=== PATIENT | male | born 1975 | race Caucasian/White ===

== ENCOUNTER 2023-08-03 08:48 | Outpatient (CLI) | payer BC, SELFPAY ==
--- NOTE | ~2023-08-03 | XR_ITS ---
EXAMINATION: XR ankle LT 2V DATE: 08/03/2023 09:02 INDICATION: Left ankle injury and pain. TECHNIQUE: 2 views of left ankle were obtained. COMPARISON: None. FINDINGS: Bone alignment is normal. No fracture. Joint spaces are normal. There is an enthesophyte at medial malleolus. There is an enthesophyte at posterior aspect of calcaneal tuberosity. There is ank le soft tissue swelling. IMPRESSION: 1. No fracture. Reviewed, dictated and finalized at location A. IMPRESSION: 1. No fracture.
== END 2023-08-03 08:49 | disposition home or self-care (01) ==
PROVIDERS: PCP Family Medicine; Visit Provider Physician Assistant Medical
DX: M25.572 Pain in left ankle and joints of left foot (principal)
CPT/HCPCS: 73600

== ENCOUNTER 2023-08-25 08:10 | Outpatient (CLI) | payer BC, SELFPAY ==
--- NOTE | ~2023-08-25 | NM_ITS ---
EXAMINATION: NM stress w perf spect multi DATE: 08/25/2023 12:12 INDICATION: Chest pain and hypertension TECHNIQUE: Rest images were obtained following intravenous administration of 9.7 mCi Tc99m tetrofosmi n (Gyros). The patient performed an exercise activity. At peak exercise, 31.5 mCi Tc99m tetrofosmin ([employer]) was administered intravenously, and stress images were obtained. Data was reconstructed in to short axis and horizontal and vertical long axis SPECT images. Gated SPECT images were also obtain ed. COMPARISON: None. FINDINGS: There is normal left ventricular perfusion without definite evidence of reversible or fixed perfusion abnormality to suggest ischemia or infarction. There is normal left ventricular chamber size, wall motion and ejection fraction. Left ventricular ejection fraction measures >70%. IMPRESSION: 1. Normal myocardial perfusion at rest and during stress. 2. Left ventricular ejection fraction measuring >70%. Reviewed, dictated and finalized at location A.
--- NOTE | 2023-08-25 08:28 | EST_ITS ---
Patient Info Name: Ross Castillo Age: 48 years : 1975 Gender: Male Ht: 72 in Wt: 275 lbs BSA: 2.56 m2 HR: 65 bpm BP: 120 / 84 mmHg Exam Date: 08/25/2023 9:17 AM Exam Location: [facility] Patient Status: Outpatient Admit Date: 08/25/2023 Staff Ordering Physician: Reyna Myers Attending Provider: Reyna Myers Exercise Technologist: Nimco Kuhn RDCS Exercise Physician: Vinnie Nieves DO Exam Type: CA stress test treadmill w NM Study Info A nuclear stress test was performed. Summary 1. 1. Negative Keny exercise stress test for ischemic ST changes by ECG criteria. 2. 2. Good functional capacity, achieving 10 METs of workload. 3. 3. Appropriate HR response to exercise. 4. 4. Appropriate HR recovery at 1 minute post exercise. 5. 5. Nuclear scan to follow and will be reported separately. Please correlate with it. 6. 6. Patient informed of the above results. Protocol: Keny Stress ECG Details Stage: REST Duration (min): 1 min : 8 sec Speed (mph): 0.0 Grade (%): 0 HR (bpm): 69 SBP (mmHg): 120 DBP (mmHg): 84 METS: --- Stage: STAGE 1 Duration (min): 1 min : 0 sec Speed (mph): 1.7 Grade (%): 10 HR (bpm): 111 SBP (mmHg): 120 DBP (mmHg): 84 METS: --- Stage: STAGE 1 Duration (min): 2 min : 0 sec Speed (mph): 1.7 Grade (%): 10 HR (bpm): 113 SBP (mmHg): 120 DBP (mmHg): 84 METS: --- Stage: STAGE 1 Duration (min): 3 min : 0 sec Speed (mph): 1.7 Grade (%): 10 HR (bpm): 118 SBP (mmHg): 147 DBP (mmHg): 64 METS: --- Stage: STAGE 2 Duration (min): 1 min : 0 sec Speed (mph): 2.5 Grade (%): 12 HR (bpm): 128 SBP (mmHg): 147 DBP (mmHg): 64 METS: --- Stage: STAGE 2 Duration (min): 2 min : 0 sec Speed (mph): 2.5 Grade (%): 12 HR (bpm): 135 SBP (mmHg): 158 DBP (mmHg): 72 METS: --- Stage: STAGE 2 Duration (min): 3 min : 0 sec Speed (mph): 2.5 Grade (%): 12 HR (bpm): 136 SBP (mmHg): 158 DBP (mmHg): 72 METS: --- Stage: STAGE 3 Duration (min): 1 min : 0 sec Speed (mph): 3.4 Grade (%): 14 HR (bpm): 138 SBP (mmHg): 187 DBP (mmHg): 104 METS: --- Stage: STAGE 3 Duration (min): 2 min : 0 sec Speed (mph): 3.4 Grade (%): 14 HR (bpm): 139 SBP (mmHg): 187 DBP (mmHg): 104 METS: --- Stage: STAGE 3 Duration (min): 2 min : 21 sec Speed (mph): 3.4 Grade (%): 14 HR (bpm): 151 SBP (mmHg): 187 DBP (mmHg): 104 METS: --- Stage: RECOVERY Duration (min): 0 min : 38 sec Speed (mph): 0.0 Grade (%): 0 HR (bpm): 154 SBP (mmHg): 153 DBP (mmHg): 75 METS: --- Stage: RECOVERY Duration (min): 1 min : 38 sec Speed (mph): 0.0 Grade (%): 0 HR (bpm): 135 SBP (mmHg): 153 DBP (mmHg): 75 METS: --- Stage: RECOVERY Duration (min): 2 min : 38 sec Speed (mph): 0.0 Grade (%): 0 HR (bpm): 121 SBP (mmHg): 153 DBP (mmHg): 75 METS: --- -----
== END 2023-08-25 08:11 | disposition home or self-care (01) ==
PROVIDERS: PCP Family Medicine; Visit Provider Physician Assistant Medical
DX: R07.89 Other chest pain (principal); I10 Essential (primary) hypertension
CPT/HCPCS: 78452; 93017; A9502